=== PATIENT | female | born 1955 | race African-American/Black ===

== ENCOUNTER 2018-04-29 22:18 | Emergency (ER) | payer SELFPAY ==
[~2018-04-29] VITALS: Ht 165.1 cm; Wt 90.7 kg
[2018-04-29 22:33] VITALS: BP 125/83; Ht 165.1 cm; Wt 90.7 kg
== END 2018-04-30 00:02 | disposition left against medical advice (07) ==
LOC: ED 22:18
DX: M25.552 Pain in left hip (principal); Z53.21 Procedure and treatment not carried out due to patient leaving prior to being seen by health care provider

== ENCOUNTER 2018-11-03 15:16 | Inpatient (IN) | payer BC ==
[~2018-11-03] VITALS: Ht 167.6 cm; Wt 104.0 kg
[2018-11-03 15:35] VITALS: Ht 167.6 cm; Wt 104.0 kg
[2018-11-03 17:08] LABS: PLATELET COUNT 263 x10^3mcL (130-400)
[2018-11-03 17:31] LABS: CALCIUM 9.6 mg/dL (8.5-10.1); CARBON DIOXIDE 27.1 mmol/L (21-32); CHLORIDE SERUM 103 mmol/L (98-107); CREATININE SERUM 0.9 mg/dL (0.6-1.0); GFR1 > 60 mL/min; GLUCOSE SERUM 111 mg/dL (74-106); POTASSIUM SERUM 4.4 mmol/L (3.5-5.1); SODIUM SERUM 139 mmol/L (136-145)
[2018-11-03 17:35] LABS: ALBUMIN 3.6 g/dL (3.4-5.0); ALKALINE PHOSPHATASE 175 U/L (46-116); ALT/SGPT 96 U/L (14-59); AST/SGOT 64 U/L (15-37); BILIRUBIN TOTAL 0.3 mg/dL (0.20-1.00); LIPASE 108 IU/L (73-393); TOTAL PROTEIN, SERUM 8.1 g/dL (6.4-8.2)
[2018-11-03 18:37] LABS: microscopic required? YES; urine erythrocyte NEGATIVE (NEGATIVE)
[2018-11-03] MEDS ORDERED: CLOPIDOGREL75 M1 (20:19)
[2018-11-03] MEDS ORDERED: NEURONTIN100 MG (20:19)
[2018-11-03] MEDS ORDERED: HYDROCHLOROTH12.5 M2 (20:19)
[2018-11-03] MEDS ORDERED: NOR5 (20:19)
[2018-11-03 21:24] VITALS: BP 136/97
[2018-11-03 21:27] LABS: CHOLESTEROL/HDL RATIO 4.2; MAGNESIUM 2.3 mg/dL (1.8-2.4); PHOSPHOROUS 3.8 mg/dL (2.5-4.9)
[2018-11-03 23:34] LABS: AMPHETAMINE QUAL UR NONE DETECTED (See below)
[2018-11-04 04:29] VITALS: BP 166/85
[2018-11-04 07:07] LABS: CALCIUM 8.9 mg/dL (8.5-10.1); CARBON DIOXIDE 26.4 mmol/L (21-32); CHLORIDE SERUM 106 mmol/L (98-107); CREATININE SERUM 0.8 mg/dL (0.6-1.0); GFR1 > 60 mL/min; GLUCOSE SERUM 180 mg/dL (74-106); POTASSIUM SERUM 4.1 mmol/L (3.5-5.1); SODIUM SERUM 142 mmol/L (136-145)
[2018-11-04 07:09] LABS: BASOPHIL % 0.9 % (0-2); PLATELET COUNT 250 x10^3mcL (130-400); RED CELL DISTRIBUTION WIDTH 13.7 % (11.5-14.5)
[2018-11-04 09:30] VITALS: BP 166/87
[2018-11-04 18:00] VITALS: BP 170/78
[2018-11-04 18:53] VITALS: BP 180/80
[2018-11-04 21:19] VITALS: BP 175/75
[2018-11-05 04:27] VITALS: BP 135/61
[2018-11-05 09:10] VITALS: BP 171/64
[2018-11-05 17:10] VITALS: BP 182/80
[2018-11-05 22:28] VITALS: BP 160/75
[2018-11-06 05:38] VITALS: BP 154/88
[2018-11-06 06:20] LABS: BASOPHIL % 0.7 % (0-2); PLATELET COUNT 231 x10^3mcL (130-400); RED CELL DISTRIBUTION WIDTH 13.4 % (11.5-14.5)
[2018-11-06 06:40] LABS: CALCIUM 9.2 mg/dL (8.5-10.1); CARBON DIOXIDE 27.3 mmol/L (21-32); CHLORIDE SERUM 105 mmol/L (98-107); CREATININE SERUM 0.8 mg/dL (0.6-1.0); GFR1 > 60 mL/min; GLUCOSE SERUM 163 mg/dL (74-106); PHOSPHOROUS 3.6 mg/dL (2.5-4.9); POTASSIUM SERUM 3.8 mmol/L (3.5-5.1); SODIUM SERUM 140 mmol/L (136-145)
[2018-11-06 09:49] VITALS: BP 168/75
[2018-11-06 17:03] VITALS: BP 170/82
[2018-11-06 22:00] VITALS: BP 147/70
[2018-11-07 05:52] VITALS: BP 163/74
[2018-11-07 06:49] LABS: CALCIUM 9.6 mg/dL (8.5-10.1); CARBON DIOXIDE 26.3 mmol/L (21-32); CHLORIDE SERUM 103 mmol/L (98-107); CREATININE SERUM 0.8 mg/dL (0.6-1.0); GFR1 > 60 mL/min; GLUCOSE SERUM 144 mg/dL (74-106); MAGNESIUM 2.1 mg/dL (1.8-2.4); PHOSPHOROUS 3.9 mg/dL (2.5-4.9); POTASSIUM SERUM 3.6 mmol/L (3.5-5.1); SODIUM SERUM 139 mmol/L (136-145)
[2018-11-07 06:50] LABS: BASOPHIL % 0.7 % (0-2); PLATELET COUNT 264 x10^3mcL (130-400); RED CELL DISTRIBUTION WIDTH 13.8 % (11.5-14.5)
[2018-11-07 08:54] VITALS: BP 189/83
[2018-11-07 11:41] VITALS: BP 169/85
[2018-11-07 16:27] VITALS: BP 163/80
== END 2018-11-07 19:48 | disposition left against medical advice (07) | DRG 694 ==
LOC: ED 15:16 → MU 20:12
PROVIDERS: Emergency Medicine; General Practice; ADMIT Internal Medicine
DX: N20.0 Calculus of kidney (principal); N13.4 Hydroureter; I69.354 Hemiplegia and hemiparesis following cerebral infarction affecting left non-dominant side; D68.69 Other thrombophilia; E11.9 Type 2 diabetes mellitus without complications; R74.0 Nonspecific elevation of levels of transaminase and lactic acid dehydrogenase [LDH]; I10 Essential (primary) hypertension; K76.0 Fatty (change of) liver, not elsewhere classified; E78.5 Hyperlipidemia, unspecified; Z68.31 Body mass index [BMI] 31.0-31.9, adult; Z53.29 Procedure and treatment not carried out because of patient's decision for other reasons
CPT/HCPCS: 82962; J0696; J1885; J2270; J2405; J7030; Q0092